=== PATIENT | male | born 1965 | race Caucasian/White ===

== ENCOUNTER 2019-06-03 19:09 | Emergency (ER) | payer OTHER ==
[~2019-06-03] VITALS: Ht 167.6 cm; Wt 76.8 kg
[2019-06-03 19:26] VITALS: BP 138/97
--- NOTE | 2019-06-03 19:35 | NUR ---
CATALINAAR to Dr Mack
[2019-06-03] MEDS ORDERED: HYDROcodone/acetaminophen 5mg/325mg tablet PO ONE (20:15)
[2019-06-03] MEDS ORDERED: ondansetron 4mg rapidly disintigrating tab PO ONE (20:15)
[2019-06-03] MEDS ORDERED: proparacaine 0.5% ophthalmic drops 15ml EACHEYE ONE (20:20)
[2019-06-03] MEDS ORDERED: cyclopentolate 2% ophthalmic sol 5ml LEFTEYE ONE (21:05)
[2019-06-03] MEDS ORDERED: ketorolac trometh inj. 60 MG/2 ML VIAL IM ONE (21:05)
[2019-06-03] MEDS ORDERED: HYDR-3965 PO (21:14)
== END 2019-06-03 21:52 | disposition home or self-care (01) ==
LOC: ER 19:10
DX: S00.12XA Contusion of left eyelid and periocular area, initial encounter (principal); H20.9 Unspecified iridocyclitis; H54.7 Unspecified visual loss; Z79.899 Other long term (current) drug therapy; W22.8XXA Striking against or struck by other objects, initial encounter; Y93.89 Activity, other specified; Y92.89 Other specified places as the place of occurrence of the external cause; Y99.8 Other external cause status
CPT/HCPCS: 70450; 70486; 99284